=== PATIENT | female | born 1975 | race African-American/Black ===

== ENCOUNTER 2016-05-26 08:06 | Emergency (ER) | payer OTHER ==
[~2016-05-26] VITALS: Ht 157.5 cm; Wt 59.0 kg
[2016-05-26 08:28] VITALS: BP 123/82
[2016-05-26 09:30] LABS: Basophils # (auto) 0 uL; Eosinophils # (auto) 0 uL; Hematocrit 42.8 % (36.0-46.0); Hemoglobin 13.8 g/dL (12.2-16.2); Lymphocytes # (auto) 1.1 uL; Lymphocytes % (auto) 6.8 % (10.0-50.0); Mean Corpuscular Hemoglobin 30.9 pg (28.0-32.0); Mean Corpuscular Hgb Conc. 32.4 g/dL (32.0-36.0); Mean Corpuscular Volume 95.4 fL (80.0-100.0); Mean Platelet Volume 8.9 fL (7.4-10.4); Monocytes # (auto) 0.7 uL; Monocytes % (auto) 4.5 % (0.0-12.0); Neutrophils # (auto) 14.6 uL; Neutrophils % (auto) 88.7 % (37.0-80.0); Platelet Count (auto) 236 10^3/uL (140-450); White Blood Cell 16.5 10^3/uL (4.4-10.8)
[2016-05-26 09:37] LABS: BUN/Creatinine Ratio 8.5; Bilirubin, Total 0.9 mg/dL (0.2-1.0); Calcium 8.8 mg/dL (8.5-10.1); Potassium 3.7 mmol/L (3.5-5.1); Total Protein 7.4 g/dL (6.4-8.2)
== END 2016-05-26 11:40 | disposition left against medical advice (07) ==
LOC: EDUNIT# 08:06 → ER 08:12
DX: R07.89 Other chest pain (principal); M25.571 Pain in right ankle and joints of right foot; F17.210 Nicotine dependence, cigarettes, uncomplicated; F12.10 Cannabis abuse, uncomplicated
CPT/HCPCS: 36415; 80053; 84484; 85025; 93005

== ENCOUNTER 2018-04-25 11:01 | Emergency (ER) | payer SELFPAY ==
[~2018-04-25] VITALS: Ht 157.5 cm; Wt 54.4 kg
[2018-04-25 11:30] VITALS: BP 115/71
== END 2018-04-25 13:53 | disposition home or self-care (01) ==
LOC: ER 11:01
DX: M25.511 Pain in right shoulder (principal); F17.210 Nicotine dependence, cigarettes, uncomplicated; F12.10 Cannabis abuse, uncomplicated; J44.9 Chronic obstructive pulmonary disease, unspecified; V43.52XA Car driver injured in collision with other type car in traffic accident, initial encounter; Y93.89 Activity, other specified; Y99.8 Other external cause status; Y92.410 Unspecified street and highway as the place of occurrence of the external cause
CPT/HCPCS: 70450; 72100; 73030

== ENCOUNTER 2022-06-07 08:38 | Emergency (ER) | payer MEDICAID ==
[~2022-06-07] VITALS: Ht 157.5 cm; Wt 55.3 kg
[2022-06-07 09:26] LABS: Basophils # (auto) 0 10 ^3/uL (0-0.2); Eosinophils # (auto) 0 10 ^3/uL (0-0.8); Eosinophils % (auto) 0.1 % (0.0-7.0); Hemoglobin 11.9 g/dL (12.2-16.2); Mean Corpuscular Hemoglobin 26.8 pg (28.0-32.0); Mean Corpuscular Hgb Conc. 32.2 g/dL (32.0-36.0); Mean Corpuscular Volume 83.2 fL (80.0-100.0); Monocytes # (auto) 0.7 10 ^3/uL (0-1.3); Red Blood Cells 4.45 10^6/uL (4.0-5.20)
[2022-06-07 09:28] LABS: Basophils % (auto) 0.4 % (0.0-2.0); Lymphocytes % (auto) 30.5 % (10.0-50.0); Monocytes % (auto) 9.9 % (0.0-12.0); Neutrophils # (auto) 3.9 10 ^3/uL (1.6-8.6); Neutrophils % (auto) 59.1 % (37.0-80.0); Nucleated Red Blood Cells % 0.2 %; Red Cell Distribution Width 18.2 % (11.8-14.3); White Blood Cell 6.7 10^3/uL (4.4-10.8)
[2022-06-07] MEDS ORDERED: DIPHENOXYLATE W/ATROPINE 2.5 MG TAB PO ONE (09:45)
[2022-06-07 09:47] LABS: Albumin 3.5 g/dL (3.4-5.0); Calcium 8.5 mg/dL (8.5-10.1); Potassium 3.4 mmol/L (3.5-5.1)
[2022-06-07 09:50] LABS: BUN/Creatinine Ratio 9.1; Bilirubin, Total 0.4 mg/dL (0.2-1.0); Total Protein 7.2 g/dL (6.4-8.2)
[2022-06-07 12:53] LABS: Benzodiazephine Screen, Urine NEGATIVE (NEGATIVE); Cannabinoid Screen, Urine POSITIVE (NEGATIVE); Cocaine Screen, Urine NEGATIVE (NEGATIVE); Opiate Scree,Urine NEGATIVE (NEGATIVE); Phencyclidine Screen, Urine NEGATIVE (NEGATIVE)
[2022-06-07 13:01] LABS: Amphetamine Screen, Urine NEGATIVE (NEGATIVE); Barbiturate Scree,Urine NEGATIVE (NEGATIVE)
[2022-06-07 13:17] VITALS: BP 122/82
[2022-06-07 14:09] LABS: Urine Bacteria FEW /hpf (None Seen); Urine Blood Negative /uL (Negative); Urine Mucus FEW (None Seen); Urine Specific Gravity 1.032 (1.001-1.035); Urine WBC 1 /hpf (0 - 5)
== END 2022-06-07 14:11 | disposition home or self-care (01) ==
LOC: ER 08:39
DX: K52.9 Noninfective gastroenteritis and colitis, unspecified (principal); F41.9 Anxiety disorder, unspecified; J44.9 Chronic obstructive pulmonary disease, unspecified; F17.210 Nicotine dependence, cigarettes, uncomplicated; F12.90 Cannabis use, unspecified, uncomplicated; Z98.890 Other specified postprocedural states
CPT/HCPCS: 36415; 80053; 80307; 81001; 85025

== ENCOUNTER 2022-12-22 09:37 | Emergency (ER) | payer MEDICAID ==
[~2022-12-22] VITALS: Ht 157.5 cm; Wt 59.0 kg
[2022-12-22 10:27] VITALS: BP 133/84; PULSE 89; RESP 20; TEMP 98.5; O2SAT 100
[2022-12-22] MEDS ORDERED: IBUP-1453 PO (12:14)
== END 2022-12-22 14:53 | disposition home or self-care (01) ==
LOC: ER 09:37
DX: S00.83XA Contusion of other part of head, initial encounter (principal); F41.9 Anxiety disorder, unspecified; J44.9 Chronic obstructive pulmonary disease, unspecified; F17.210 Nicotine dependence, cigarettes, uncomplicated; F12.10 Cannabis abuse, uncomplicated; W22.8XXA Striking against or struck by other objects, initial encounter; Y93.89 Activity, other specified; Y92.89 Other specified places as the place of occurrence of the external cause; Y99.8 Other external cause status
CPT/HCPCS: 70450

== ENCOUNTER 2023-10-16 11:15 | Inpatient (IN) | payer MEDICAID ==
[~2023-10-16] VITALS: Ht 157.5 cm; Wt 59.9 kg
[~2023-10-16 11:15] MED LIST: IBUP-1453 PO
[2023-10-16 12:28] LABS: Basophils # (auto) 0 10 ^3/uL (0-0.2); Eosinophils # (auto) 0 10 ^3/uL (0-0.8); Lymphocytes # (auto) 2.3 10 ^3/uL (0.4-5.4); Monocytes # (auto) 0.2 10 ^3/uL (0-1.3); Nucleated Red Blood Cells % 0.1 %
[2023-10-16 12:30] LABS: Hematocrit 37.1 % (36.0-46.0); Hemoglobin 11.5 g/dL (12.2-16.2); Lymphocytes % (auto) 20.4 % (10.0-50.0); Mean Corpuscular Hemoglobin 23.7 pg (28.0-32.0); Mean Corpuscular Hgb Conc. 31.1 g/dL (32.0-36.0); Mean Corpuscular Volume 76.2 fL (80.0-100.0); Neutrophils # (auto) 8.9 10 ^3/uL (1.6-8.6); Neutrophils % (auto) 77.6 % (37.0-80.0); Red Blood Cells 4.87 10^6/uL (4.0-5.20); Red Cell Distribution Width 20.8 % (11.8-14.3); White Blood Cell 11.5 10^3/uL (4.4-10.8)
[2023-10-16 12:32] LABS: Amphetamine Screen, Urine Pos (NEGATIVE); Barbiturate Scree,Urine Neg (NEGATIVE); Benzodiazephine Screen, Urine Neg (NEGATIVE); Cocaine Screen, Urine Neg (NEGATIVE)
[2023-10-16 12:33] LABS: Cannabinoid Screen, Urine Pos (NEGATIVE); Opiate Scree,Urine Neg (NEGATIVE); Phencyclidine Screen, Urine Neg (NEGATIVE)
[2023-10-16 12:45] LABS: INR 1.39 (0.9-1.15); Partial Thromboplastin Time 25.9 SEC (24.5-34.5); Prothrombin Time 14.4 sec (9.3-11.8)
[2023-10-16] MEDS: IOHEXOL 350 MG/ML 100ML IJ ONE ×2 (13:26→20:12)
[2023-10-16] MEDS: SODIUM CHLORIDE 0.9% 1,000 ML IV ONE ×2 (13:26→15:29)
[2023-10-16 14:00] VITALS: PULSE 99; RESP 24; O2SAT 96
[2023-10-16 14:15] LABS: Lactic Acid w/Reflex 6.8 mmol/L (0.4-2.0)
[2023-10-16 14:17] LABS: Acetaminophen < 2.0 UG/ML (10.0-20.0)
[2023-10-16 14:18] LABS: Salicylate < 3.0 mg/dL (2.8-20.0)
[2023-10-16 15:15] LABS: Alanine Aminotransferase 21 U/L (7-40); Albumin 3.7 g/dL (3.2-4.8); Alkaline Phosphatase 78 U/L (46-116); Anion Gap 16 (5-15); Aspartate Aminotransferase 25 U/L (13-40); BUN/Creatinine Ratio 16.8 (10.0-20.0); Blood Urea Nitrogen 16 mg/dL (9-23); Calcium 8.8 mg/dL (8.5-10.1); Carbon Dioxide 17 mmol/L (20-30); Chloride 104 mmol/L (98-107); Glucose 134 mg/dL (74-106); Magnesium 1.7 mg/dL (1.6-2.6); Potassium 3.5 mmol/L (3.5-5.1); Sodium 137 mmol/L (136-145)
[2023-10-16 15:16] LABS: Bilirubin, Total 0.7 mg/dL (0.2-1.0)
[2023-10-16] MEDS: MORPHINE SULFATE INJ 2 MG/ml SYRG IV ONE (15:29)
[2023-10-16] MEDS: VANCOMYCIN 1GM/200ML 200 ML IV ONE (15:30)
[2023-10-16] MEDS: PIPERACILLIN-TAZO 4.5GM 100 ML IV ONE (17:09)
[2023-10-16] MEDS: PANTOPRAZOLE 40 MG/10 ML VIAL INJ IV SCH (18:28)
[2023-10-16 19:20] VITALS: RESP 22; O2SAT 96
[2023-10-16] MEDS: diphenhdrAMINE HCL 50 MG/1 ML VL IV ONE (19:30)
[2023-10-16] MEDS: LORazepam 2MG/ML-1ML VIAL IV ONE (19:45)
[2023-10-16] MEDS: LACTATED RINGER'S 1,000 ML IV ONE (20:00)
[2023-10-16 21:00] VITALS: BP 82/56; PULSE 64; RESP 19; TEMP 97.5; O2SAT 97
[2023-10-16 21:03] VITALS: PULSE 74; RESP 18; O2SAT 96
[2023-10-16] MEDS: SODIUM CHLOR 0.9% PF (SALINE LOCK) 10ML VIAL/SYR IV SCH (22:42)
[2023-10-16] MEDS: ACETAMINOPHEN 325 MG TAB PO PRN (22:55)
[2023-10-17] VITALS (11 sets, daily range): BP systolic 90–103; BP diastolic 60–68; PULSE 71–119; RESP 16–20; TEMP 98–99.3; O2SAT 90–100
[2023-10-17] MEDS: HYDROcodone-ACET 5/325MG TAB PO PRN (06:33)
[2023-10-17] MEDS: cefTRIAXone 1GM/50ML D5W 50 ML IV SCH (08:45)
[2023-10-17] MEDS: AZITHROMYCIN 500MG/ 250ML 250 ML IV SCH (08:45)
[2023-10-17] MEDS: NICOTINE 21MG/24 HR TOPICAL PATCH TD SCH (08:45)
[2023-10-17 14:03] LABS: Basophils # (auto) 0 10 ^3/uL (0-0.2); Basophils % (auto) 0.1 % (0.0-2.0); Eosinophils # (auto) 0 10 ^3/uL (0-0.8); Lymphocytes # (auto) 2.3 10 ^3/uL (0.4-5.4); Mean Corpuscular Hgb Conc. 31.1 g/dL (32.0-36.0); Monocytes # (auto) 0.2 10 ^3/uL (0-1.3); White Blood Cell 14.4 10^3/uL (4.4-10.8)
[2023-10-17 14:04] LABS: Hemoglobin 11.5 g/dL (12.2-16.2); Lymphocytes % (auto) 15.7 % (10.0-50.0); Mean Corpuscular Hemoglobin 23.8 pg (28.0-32.0); Mean Corpuscular Volume 76.4 fL (80.0-100.0); Monocytes % (auto) 1.3 % (0.0-12.0); Neutrophils # (auto) 11.9 10 ^3/uL (1.6-8.6); Neutrophils % (auto) 82.9 % (37.0-80.0); Red Blood Cells 4.85 10^6/uL (4.0-5.20); Red Cell Distribution Width 20.9 % (11.8-14.3)
[2023-10-17] MEDS: PIPERACILLIN-TAZOB 3.375GM 100 ML IV SCH (14:08)
[2023-10-17] MEDS ORDERED: VANCOMYCIN PER PHARMACY 0 MG IV SCH (14:15)
[2023-10-17 14:21] LABS: Alanine Aminotransferase 15 U/L (7-40); Alkaline Phosphatase 76 U/L (46-116); Calcium 8.9 mg/dL (8.5-10.1); Carbon Dioxide 26 mmol/L (20-30); Chloride 106 mmol/L (98-107); Glucose 118 mg/dL (74-106); LDL Cholesterol 14 mg/dL (< 100); Magnesium 2.2 mg/dL (1.6-2.6); Potassium 3.3 mmol/L (3.5-5.1); Triglycerides 67 mg/dL (< 150)
[2023-10-17 14:22] LABS: Albumin 3.6 g/dL (3.2-4.8); Anion Gap 6 (5-15); Aspartate Aminotransferase 17 U/L (13-40); BUN/Creatinine Ratio 12.2 (10.0-20.0); Bilirubin, Total 0.4 mg/dL (0.2-1.0); Blood Urea Nitrogen 10 mg/dL (9-23); Cholesterol 75 mg/dL (< 200); HDL Cholesterol 38 mg/dL (40-59); Sodium 138 mmol/L (136-145); Total Protein 6.1 g/dL (5.7-8.2)
[2023-10-17] MEDS: VANCOMYCIN 1GM/200ML 200 ML IV ONE (14:30)
[2023-10-17 14:45] LABS: Lactic Acid w/Reflex 3.6 mmol/L (0.4-2.0)
[2023-10-17] MEDS: POTASSIUM EFFERVESENT TAB 25 MEQ PO ONE (18:21)
[2023-10-17] MEDS: DOCUSATE SOD 100 MG CAP PO PRN (21:17)
[2023-10-18] VITALS (13 sets, daily range): BP systolic 95–118; BP diastolic 62–77; PULSE 84–103; RESP 15–22; TEMP 97.9–99; O2SAT 94–100
[2023-10-18] MEDS: VANCOMYCIN 1GM/200ML 200 ML IV SCH (04:54)
[2023-10-18] MEDS: LEVALBUTEROL HCL 1.25 MG/3 ML NEB NEB PRN (05:40)
[2023-10-18] MEDS: IPRATROPIUM BROM 0.5 MG/2.5ML INH SOL NEB PRN (05:40)
[2023-10-18 06:17] LABS: Rapid Influenza A Negative (Negative); Rapid Influenza B Negative (Negative)
[2023-10-18] MEDS: POTASSIUM CHL 20 Meq TABLET PO ONE (09:32)
[2023-10-18 11:42] LABS: Basophils # (auto) 0 10 ^3/uL (0-0.2); Eosinophils # (auto) 0 10 ^3/uL (0-0.8); Eosinophils % (auto) 0.1 % (0.0-7.0); Hemoglobin 10.1 g/dL (12.2-16.2); Lymphocytes # (auto) 2.5 10 ^3/uL (0.4-5.4); Monocytes # (auto) 0.3 10 ^3/uL (0-1.3)
[2023-10-18 11:45] LABS: Basophils % (auto) 0.1 % (0.0-2.0); Hematocrit 32.3 % (36.0-46.0); Lymphocytes % (auto) 15.2 % (10.0-50.0); Mean Corpuscular Hemoglobin 23.8 pg (28.0-32.0); Mean Corpuscular Hgb Conc. 31.3 g/dL (32.0-36.0); Mean Corpuscular Volume 75.9 fL (80.0-100.0); Monocytes % (auto) 1.8 % (0.0-12.0); Neutrophils # (auto) 13.8 10 ^3/uL (1.6-8.6); Neutrophils % (auto) 82.8 % (37.0-80.0); Nucleated Red Blood Cells % 0.1 %; Red Blood Cells 4.25 10^6/uL (4.0-5.20); Red Cell Distribution Width 20.8 % (11.8-14.3); White Blood Cell 16.7 10^3/uL (4.4-10.8)
[2023-10-18 12:03] LABS: Alanine Aminotransferase 15 U/L (7-40); Albumin 3.3 g/dL (3.2-4.8); Alkaline Phosphatase 81 U/L (46-116); Anion Gap 4 (5-15); Aspartate Aminotransferase 26 U/L (13-40); BUN/Creatinine Ratio 13.4 (10.0-20.0); Blood Urea Nitrogen 11 mg/dL (9-23); Calcium 8.6 mg/dL (8.5-10.1); Carbon Dioxide 27 mmol/L (20-30); Chloride 105 mmol/L (98-107); Glucose 139 mg/dL (74-106); Magnesium 2.3 mg/dL (1.6-2.6); Potassium 3.2 mmol/L (3.5-5.1); Sodium 136 mmol/L (136-145)
[2023-10-18 12:04] LABS: Bilirubin, Total 0.5 mg/dL (0.2-1.0); Total Protein 5.7 g/dL (5.7-8.2)
[2023-10-19] VITALS (13 sets, daily range): BP systolic 103–121; BP diastolic 61–80; PULSE 84–111; RESP 15–24; TEMP 98.1–100.7; O2SAT 91–100
[2023-10-19 04:44] LABS: Eosinophils # (auto) 0 10 ^3/uL (0-0.8); Eosinophils % (auto) 0.3 % (0.0-7.0); Hematocrit 30.9 % (36.0-46.0); Nucleated Red Blood Cells % 0.1 %
[2023-10-19 04:45] LABS: Basophils # (auto) 0 10 ^3/uL (0-0.2); Basophils % (auto) 0.1 % (0.0-2.0); Hemoglobin 9.6 g/dL (12.2-16.2); Lymphocytes # (auto) 2.5 10 ^3/uL (0.4-5.4); Lymphocytes % (auto) 16.9 % (10.0-50.0); Mean Corpuscular Hgb Conc. 31.1 g/dL (32.0-36.0); Mean Corpuscular Volume 74.1 fL (80.0-100.0); Monocytes # (auto) 0.6 10 ^3/uL (0-1.3); Monocytes % (auto) 3.7 % (0.0-12.0); Neutrophils # (auto) 11.9 10 ^3/uL (1.6-8.6); Red Blood Cells 4.17 10^6/uL (4.0-5.20)
[2023-10-19 04:54] LABS: Chloride 108 mmol/L (98-107); Potassium 3.2 mmol/L (3.5-5.1); Sodium 138 mmol/L (136-145)
[2023-10-19 04:55] LABS: Anion Gap 4 (5-15); Calcium 8.4 mg/dL (8.7-10.4); Carbon Dioxide 26 mmol/L (20-30)
[2023-10-19 05:00] LABS: BUN/Creatinine Ratio 14.5 (10.0-20.0); Blood Urea Nitrogen 9 mg/dL (9-23); Glucose 92 mg/dL (74-106); Red Cell Distribution Width 20.3 % (11.8-14.3)
[2023-10-19 05:19] LABS: COVID19 ANTIGEN SOFIA FIA NEGATIVE (NEGATIVE)
[2023-10-19 05:42] LABS: Anisocytosis Slight; Hypochromia Moderate; Platelet Estimate Adequate
[2023-10-19 10:37] LABS: Hepatitis B Surface Antigen Negative (Negative)
[2023-10-19 10:58] LABS: Hepatitis C Antibody Negative (Negative)
[2023-10-19] MEDS: ENOXAPARIN SOD 40 MG/0.4 ML SYRINGE SC ONE (12:15)
[2023-10-19] MEDS: cefTRIAXone 1GM/50ML D5W 50 ML IV ONE (16:31)
[2023-10-19] MEDS: POTASSIUM EFFERVESENT TAB 25 MEQ PO ONE (16:31)
[2023-10-19 21:54] LABS: Urine Bacteria None Seen /hpf (None Seen)
[2023-10-19 22:15] LABS: Urine Blood Negative /uL (Negative); Urine Clarity Clear (Clear); Urine Color Light-Yellow (Yellow); Urine Mucus FEW (None Seen); Urine Protein, UAD TRACE (Negative); Urine Urobilinogen Normal (Negative); Urine WBC 1 /hpf (0 - 5); Urine pH 7.5 (5.0-9.0)
[2023-10-19 22:18] LABS: Amphetamine Screen, Urine Neg (NEGATIVE); Barbiturate Scree,Urine Neg (NEGATIVE); Benzodiazephine Screen, Urine Neg (NEGATIVE); Cannabinoid Screen, Urine Pos (NEGATIVE); Cocaine Screen, Urine Neg (NEGATIVE); Opiate Scree,Urine Neg (NEGATIVE); Phencyclidine Screen, Urine Neg (NEGATIVE)
[2023-10-20] VITALS (14 sets, daily range): BP systolic 107–124; BP diastolic 74–80; PULSE 67–103; RESP 16–20; TEMP 98.2–100.8; O2SAT 95–100
[2023-10-20 07:02] LABS: Basophils # (auto) 0 10 ^3/uL (0-0.2); Basophils % (auto) 0.1 % (0.0-2.0); Eosinophils # (auto) 0 10 ^3/uL (0-0.8); Eosinophils % (auto) 0.2 % (0.0-7.0); Hematocrit 31.5 % (36.0-46.0); Hemoglobin 9.9 g/dL (12.2-16.2); Lymphocytes # (auto) 2.5 10 ^3/uL (0.4-5.4); Lymphocytes % (auto) 20.2 % (10.0-50.0); Mean Corpuscular Hemoglobin 23.6 pg (28.0-32.0); Mean Corpuscular Hgb Conc. 31.4 g/dL (32.0-36.0); Mean Corpuscular Volume 75.1 fL (80.0-100.0); Monocytes # (auto) 1.5 10 ^3/uL (0-1.3); Monocytes % (auto) 11.7 % (0.0-12.0); Neutrophils # (auto) 8.4 10 ^3/uL (1.6-8.6); Neutrophils % (auto) 67.8 % (37.0-80.0); Nucleated Red Blood Cells % 0.1 %; White Blood Cell 12.4 10^3/uL (4.4-10.8)
[2023-10-20 07:06] LABS: Red Cell Distribution Width 20.8 % (11.8-14.3)
[2023-10-20 07:33] LABS: Anion Gap 6 (5-15); Carbon Dioxide 26 mmol/L (20-30); Chloride 107 mmol/L (98-107); Potassium 3.3 mmol/L (3.5-5.1); Sodium 139 mmol/L (136-145)
[2023-10-20 07:34] LABS: Calcium 8.7 mg/dL (8.5-10.1)
[2023-10-20 07:39] LABS: Glucose 89 mg/dL (74-106)
[2023-10-20 07:41] LABS: BUN/Creatinine Ratio 9.8 (10.0-20.0); Blood Urea Nitrogen < 5 mg/dL (9-23)
[2023-10-20] MEDS: cefTRIAXone 1GM/50ML D5W 50 ML IV SCH (08:39)
[2023-10-20] MEDS ORDERED: ENOXAPARIN SOD 40 MG/0.4 ML SYRINGE SC SCH (10:00)
[2023-10-20] MEDS: POTASSIUM EFFERVESENT TAB 25 MEQ PO ONE (13:34)
[2023-10-20] MEDS: ONDANSETRON HCL 4 MG/2 ML VIAL IV PRN (14:51)
[2023-10-21] VITALS (12 sets, daily range): BP systolic 101–116; BP diastolic 61–77; PULSE 37–108; RESP 16–20; TEMP 98.1–100.5; O2SAT 92–100
[2023-10-21 06:55] LABS: Alanine Aminotransferase 36 U/L (7-40); Albumin 3.7 g/dL (3.2-4.8); Alkaline Phosphatase 100 U/L (46-116); Anion Gap 6 (5-15); Aspartate Aminotransferase 22 U/L (13-40); BUN/Creatinine Ratio 10.7 (10.0-20.0); Blood Urea Nitrogen 6 mg/dL (9-23); Calcium 9.1 mg/dL (8.5-10.1); Carbon Dioxide 25 mmol/L (20-30); Chloride 106 mmol/L (98-107); Glucose 102 mg/dL (74-106); Potassium 3.9 mmol/L (3.5-5.1); Sodium 137 mmol/L (136-145)
[2023-10-21 06:56] LABS: Bilirubin, Total 0.4 mg/dL (0.2-1.0); Total Protein 6.5 g/dL (5.7-8.2)
[2023-10-21 07:06] LABS: Magnesium 1.8 mg/dL (1.6-2.6)
[2023-10-21] MEDS: MAGNESIUM OXIDE 400 MG TAB PO ONE (11:17)
[2023-10-21] MEDS: IPRATROPIUM BROM 0.5 MG/2.5ML INH SOL NEB SCH (21:09)
[2023-10-21] MEDS: ALBUTEROL SULF 2.5 MG/0.5ML(0.5%) NEB SOLN NEB SCH (21:09)
[2023-10-22] VITALS (9 sets, daily range): BP systolic 98–110; BP diastolic 57–69; PULSE 78–108; RESP 17–18; TEMP 97.4–98.4; O2SAT 17–100
[2023-10-22 06:04] LABS: Hematocrit 33.4 % (36.0-46.0); White Blood Cell 12.3 10^3/uL (4.4-10.8)
[2023-10-22 06:06] LABS: Hemoglobin 10.6 g/dL (12.2-16.2); Mean Corpuscular Hemoglobin 23.9 pg (28.0-32.0); Mean Corpuscular Hgb Conc. 31.7 g/dL (32.0-36.0); Mean Corpuscular Volume 75.5 fL (80.0-100.0); Red Blood Cells 4.42 10^6/uL (4.0-5.20)
[2023-10-22 06:18] LABS: Red Cell Distribution Width 20.7 % (11.8-14.3)
[2023-10-22 06:19] LABS: Band Neutrophils % (manual) 0; Basophils % (manual) 0 (0.0-2.0); Blast Cells 0; Eosinophils % (manual) 0 (0-7); Metamyelocytes % 0; Myelocytes % 0; Promyelocytes % 0; Reactive Lymphocytes 0
[2023-10-22 06:25] LABS: Alanine Aminotransferase 51 U/L (7-40); Albumin 3.6 g/dL (3.2-4.8); Alkaline Phosphatase 93 U/L (46-116); Anion Gap 6 (5-15); Aspartate Aminotransferase 33 U/L (13-40); Bilirubin, Total 0.4 mg/dL (0.2-1.0); Calcium 9.2 mg/dL (8.7-10.4); Carbon Dioxide 23 mmol/L (20-30); Chloride 106 mmol/L (98-107); Glucose 114 mg/dL (74-106); Magnesium 1.9 mg/dL (1.6-2.6); Potassium 3.6 mmol/L (3.5-5.1); Sodium 135 mmol/L (136-145)
[2023-10-22 06:47] LABS: BUN/Creatinine Ratio 10.2 (10.0-20.0); Blood Urea Nitrogen < 5 mg/dL (9-23)
[2023-10-22 07:03] LABS: Total Protein 6.5 g/dL (5.7-8.2)
[2023-10-22 08:46] LABS: Lymphocytes % (manual) 25 (10.0-50.0); Monocytes % (manual) 7 (0-12)
[2023-10-22 08:47] LABS: Large Platelets FEW; Platelet Estimate Adequa
[2023-10-22] MEDS ORDERED: AZITTAB PO (13:55)
[2023-10-22] MEDS ORDERED: ZOFR4T PO (13:55)
== END 2023-10-22 15:35 | disposition home or self-care (01) | DRG 720 ==
LOC: ER 11:15 → TELE 16:35 → TELE-CENTR 20:18
PROVIDERS: ADMIT Internal Medicine; ATTEND Emergency Medicine
DX: A40.8 Other streptococcal sepsis (principal); J96.01 Acute respiratory failure with hypoxia; R65.20 Severe sepsis without septic shock; J13 Pneumonia due to Streptococcus pneumoniae; E86.1 Hypovolemia; J44.0 Chronic obstructive pulmonary disease with (acute) lower respiratory infection; F15.20 Other stimulant dependence, uncomplicated; E87.6 Hypokalemia; F41.9 Anxiety disorder, unspecified; R04.2 Hemoptysis; F12.10 Cannabis abuse, uncomplicated; Z20.822 Contact with and (suspected) exposure to COVID-19; F10.10 Alcohol abuse, uncomplicated; Y90.9 Presence of alcohol in blood, level not specified; F17.210 Nicotine dependence, cigarettes, uncomplicated; Z98.891 History of uterine scar from previous surgery
CPT/HCPCS: 36415; 71045; 71275; 74018; 80048; 80053; 80061; 80202; 80307; 80320; 80329; 81001; 83036; 83605; 83735; 83880; 84443; 84484; 84702; 85007; 85025; 85027; 85379; 85610; 85730; 86703; 86803; 86850; 86870; 86900; 86901; 87040; 87070; 87077; 87081; 87086; 87088; 87186; 87205; 87340; 87426; 87804; 93005; 93970; 94640; 99291; C9113; G0378; J2405; J2543